=== PATIENT | female | born 1980 | race Caucasian/White ===

== ENCOUNTER 2018-04-24 18:29 | Inpatient (IN) | payer BC ==
[2018-04-24] MEDS ORDERED: NACL 0.9% 3 ML SYG IV (20:00)
[2018-04-24 20:04] LABS: ADD MAN DIFF? NO
[2018-04-24 20:30] LABS: ALANINE AMINOTRANSFERASE 21 IU/L (13-69); ALBUMIN 3.9 g/dl (3.3-4.9); ALBUMIN/GLOBULIN RATIO 1.18; ALKALINE PHOSPHATASE 74 IU/L (42-121); ANION GAP 7 (5-13); ASPARTATE AMINO TRANSFERASE 20 IU/L (15-46); BILIRUBIN,INDIRECT 0.1 mg/dl (0-1.1); BILIRUBIN,TOTAL 0.1 mg/dl (0.2-1.3); BLOOD UREA NITROGEN 10 mg/dl (7-20); CALCIUM 9.3 mg/dl (8.4-10.2); CARBON DIOXIDE 27 mmol/L (21-31); CHLORIDE 107 mmol/L (97-110); CREATININE 0.52 mg/dl (0.44-1.00); Estimated GFR > 60 mL/min (>60); GLUCOSE 120 mg/dl (70-220); POTASSIUM 3.7 mmol/L (3.5-5.1); SODIUM 141 mmol/L (135-144); TOTAL PROTEIN 7.2 g/dl (6.1-8.1)
[2018-04-24 20:39] LABS: BASOPHIL # 0.1 10^3/ul (0.0-0.1); BASOPHILS % 0.5 % (0.0-2.0); EOSINOPHILS % 0.3 % (0.0-7.0); HEMATOCRIT 38.8 % (37.0-47.0); HEMOGLOBIN 12.5 g/dl (12.0-16.0); LYMPHOCYTES # 1.5 10^3/ul (0.8-2.9); LYMPHOCYTES % 9.5 % (15.0-51.0); MEAN CORPUSCULAR HEMOGLOBIN 29.7 pg (29.0-33.0); MEAN CORPUSCULAR HGB CONC 32.2 g/dl (32.0-37.0); MEAN CORPUSCULAR VOLUME 92.2 fl (82.0-101.0); MEAN PLATELET VOLUME 10.2 fl (7.4-10.4); MONOCYTE # 1.1 10^3/ul (0.3-0.9); MONOCYTES % 6.8 % (0.0-11.0); NEUTROPHIL # 13.1 10^3/ul (1.6-7.5); NEUTROPHILS % 82.3 % (39.0-77.0); PLATELET COUNT 382 10^3/UL (140-415); RED BLOOD COUNT 4.21 10^6/ul (4.20-5.40); RED CELL DISTRIBUTION WIDTH 14.5 % (11.5-14.5)
[2018-04-24 20:39] LABS: WHITE BLOOD COUNT 15.8 10^3/ul (4.8-10.8)
[2018-04-24] MEDS: HYDROCODONE/APAP (5/325) TAB PO (21:47)
[2018-04-24] MEDS: ONDANSETRON 4 MG INJ IV (23:09)
[2018-04-24] MEDS: morphine 2 MG INJ IV (23:09)
[2018-04-24] MEDS: metroNIDAZOLE 500 MG/NS (PMX) 100 ML IVPB (23:46)
[2018-04-25] MEDS: CIPROFLOXACIN 400MG/D5W 200 ML IVPB ×3 (00:54→20:45)
[2018-04-25] MEDS: metroNIDAZOLE 500 MG/NS (PMX) 100 ML IVPB ×4 (05:28→17:34)
[2018-04-25 05:31] LABS: ADD MAN DIFF? NO
[2018-04-25 05:58] LABS: WHITE BLOOD COUNT 13.9 10^3/ul (4.8-10.8)
[2018-04-25 05:58] LABS: BASOPHIL # 0.1 10^3/ul (0.0-0.1); BASOPHILS % 0.4 % (0.0-2.0); EOSINOPHILS % 0.3 % (0.0-7.0); HEMATOCRIT 37.6 % (37.0-47.0); HEMOGLOBIN 12.2 g/dl (12.0-16.0); LYMPHOCYTES # 1.7 10^3/ul (0.8-2.9); MEAN CORPUSCULAR HEMOGLOBIN 29.6 pg (29.0-33.0); MEAN CORPUSCULAR HGB CONC 32.4 g/dl (32.0-37.0); MEAN CORPUSCULAR VOLUME 91.3 fl (82.0-101.0); MEAN PLATELET VOLUME 10.6 fl (7.4-10.4); MONOCYTE # 1.1 10^3/ul (0.3-0.9); MONOCYTES % 8.1 % (0.0-11.0); NEUTROPHIL # 10.9 10^3/ul (1.6-7.5); NEUTROPHILS % 78.8 % (39.0-77.0); PLATELET COUNT 369 10^3/UL (140-415); RED BLOOD COUNT 4.12 10^6/ul (4.20-5.40); RED CELL DISTRIBUTION WIDTH 14.6 % (11.5-14.5)
[2018-04-25 06:08] LABS: HEMOGLOBIN A1C 5.1 % (0-5.9)
[2018-04-25 06:10] LABS: MAGNESIUM 1.8 mg/dl (1.7-2.5)
[2018-04-25 06:10] LABS: CHOL/HDL RATIO 2.3 RATIO; CHOLESTEROL 126 mg/dl (100-200); HDL CHOLESTEROL 53 mg/dl (34-82); LDL CHOLESTEROL,CALCULATED 63 mg/dl; TRIGLYCERIDES 51 mg/dl (0-149)
[2018-04-25] MEDS: HYDROmorphONE 0.5 MG/0.5 ML SYG IV (06:39)
[2018-04-25] MEDS: ONDANSETRON 4 MG INJ IV ×2 (06:39→13:17)
[2018-04-25] MEDS: SOD CHLORIDE 0.9% 100 ML (08:32)
[2018-04-25] MEDS: IOHEXOL 300MG/ML 150 ML BTL (08:33)
[2018-04-25] MEDS: BISACODYL (EC) 5 MG TAB PO (11:36)
[2018-04-25] MEDS: ACETAMINOPHEN 325 MG TAB PO (14:45)
[2018-04-26] MEDS: metroNIDAZOLE 500 MG/NS (PMX) 100 ML IVPB ×4 (00:13→18:12)
[2018-04-26 06:14] LABS: ADD MAN DIFF? NO
[2018-04-26 06:18] LABS: WHITE BLOOD COUNT 7.7 10^3/ul (4.8-10.8)
[2018-04-26 06:18] LABS: BASOPHIL # 0.1 10^3/ul (0.0-0.1); BASOPHILS % 0.8 % (0.0-2.0); EOSINOPHILS # 0.1 10^3/ul (0.0-0.5); HEMATOCRIT 38.3 % (37.0-47.0); HEMOGLOBIN 12.3 g/dl (12.0-16.0); LYMPHOCYTES % 25.9 % (15.0-51.0); MEAN CORPUSCULAR HEMOGLOBIN 29.4 pg (29.0-33.0); MEAN CORPUSCULAR HGB CONC 32.1 g/dl (32.0-37.0); MEAN CORPUSCULAR VOLUME 91.4 fl (82.0-101.0); MEAN PLATELET VOLUME 10.5 fl (7.4-10.4); MONOCYTE # 0.7 10^3/ul (0.3-0.9); MONOCYTES % 8.9 % (0.0-11.0); NEUTROPHIL # 4.9 10^3/ul (1.6-7.5); PLATELET COUNT 387 10^3/UL (140-415); RED BLOOD COUNT 4.19 10^6/ul (4.20-5.40); RED CELL DISTRIBUTION WIDTH 14.6 % (11.5-14.5)
[2018-04-26 07:02] LABS: ANION GAP 9 (5-13); Estimated GFR > 60 mL/min (>60)
[2018-04-26 07:03] LABS: BLOOD UREA NITROGEN 9 mg/dl (7-20); CALCIUM 9.1 mg/dl (8.4-10.2); CARBON DIOXIDE 26 mmol/L (21-31); CHLORIDE 105 mmol/L (97-110); CREATININE 0.45 mg/dl (0.44-1.00); GLUCOSE 93 mg/dl (70-220); POTASSIUM 3.8 mmol/L (3.5-5.1); SODIUM 140 mmol/L (135-144)
[2018-04-26] MEDS: CIPROFLOXACIN 400MG/D5W 200 ML IVPB ×2 (09:22→20:30)
[2018-04-26] MEDS: DOCUSATE SODIUM 100 MG CAP PO (20:34)
[2018-04-27] MEDS: metroNIDAZOLE 500 MG/NS (PMX) 100 ML IVPB ×3 (00:19→13:42)
[2018-04-27 05:11] LABS: ADD MAN DIFF? NO
[2018-04-27 05:17] LABS: BASOPHIL # 0.1 10^3/ul (0.0-0.1); EOSINOPHILS # 0.1 10^3/ul (0.0-0.5); EOSINOPHILS % 0.9 % (0.0-7.0); HEMATOCRIT 40.2 % (37.0-47.0); HEMOGLOBIN 13.1 g/dl (12.0-16.0); LYMPHOCYTES # 1.7 10^3/ul (0.8-2.9); LYMPHOCYTES % 20.8 % (15.0-51.0); MEAN CORPUSCULAR HEMOGLOBIN 29.8 pg (29.0-33.0); MEAN CORPUSCULAR HGB CONC 32.6 g/dl (32.0-37.0); MEAN CORPUSCULAR VOLUME 91.4 fl (82.0-101.0); MEAN PLATELET VOLUME 10.1 fl (7.4-10.4); MONOCYTE # 0.7 10^3/ul (0.3-0.9); NEUTROPHIL # 5.5 10^3/ul (1.6-7.5); NEUTROPHILS % 67.7 % (39.0-77.0); PLATELET COUNT 408 10^3/UL (140-415); RED CELL DISTRIBUTION WIDTH 14.3 % (11.5-14.5)
[2018-04-27 05:17] LABS: WHITE BLOOD COUNT 8.1 10^3/ul (4.8-10.8)
[2018-04-27] MEDS: CIPROFLOXACIN 400MG/D5W 200 ML IVPB (09:06)
[2018-04-27] MEDS: FOSFOMYCIN 3 GM PACKET PO (14:42)
== END 2018-04-27 15:40 | disposition home health service (06) | DRG 759 ==
LOC: 2NE 18:29
DX: N75.1 Abscess of Bartholin's gland (principal)
CPT/HCPCS: 74177; 80048; 80053; 80061; 83036; 83735; 84443; 84703; 85025; 87070